=== PATIENT | female | born 1995 | race African-American/Black ===

== ENCOUNTER 2020-09-05 17:27 | Emergency (ER) | payer MEDICAID, OTHER ==
[~2020-09-05] VITALS: Ht 157.5 cm; Wt 54.0 kg
[2020-09-05] MEDS ORDERED: IBUPROFEN 600MG TABLET PO ONE (18:30)
[2020-09-05] MEDS ORDERED: HYDROCODONE/ACETAMINOPHEN 5/325MG TABLET PO ONE (19:15)
[2020-09-05] MEDS ORDERED: IBUP-2028 MT (19:53)
[2020-09-05] MEDS ORDERED: HYDR-4001 MT (20:31)
[2020-09-05 20:51] VITALS: BP 101/66
== END 2020-09-05 22:10 | disposition home or self-care (01) ==
LOC: ER 20:02
DX: M54.5 Low back pain (principal); M25.562 Pain in left knee; J45.909 Unspecified asthma, uncomplicated; V43.62XA Car passenger injured in collision with other type car in traffic accident, initial encounter; Y93.89 Activity, other specified; Y92.488 Other paved roadways as the place of occurrence of the external cause
CPT/HCPCS: 72100; 73560; 99284; L1830